=== PATIENT | male | born 1965 | race Caucasian/White ===

== ENCOUNTER 2018-05-10 09:28 | Outpatient (CLI) | payer OTHER | END 2018-05-10 09:38 | disposition home or self-care (01) | LOC: SONOGRAMA 09:28 | DX: E04.2 Nontoxic multinodular goiter (principal) ==

== ENCOUNTER 2019-06-20 09:05 | Outpatient (CLI) | payer OTHER | END 2019-06-20 09:06 | disposition home or self-care (01) | LOC: SONOGRAMA 09:05 | DX: E04.1 Nontoxic single thyroid nodule (principal) ==

== ENCOUNTER 2020-08-03 09:13 | Outpatient (CLI) | payer OTHER | END 2020-08-03 09:31 | disposition home or self-care (01) | LOC: SONOGRAMA 09:13 | PROVIDERS: ATTEND Pathology Anatomic Pathology & Clinical Pathology | DX: E04.2 Nontoxic multinodular goiter (principal) ==

== ENCOUNTER 2024-05-14 10:15 | Inpatient (IN) | payer OTHER ==
[2024-05-14] MEDS ORDERED: METFORMIN HCL1000 M2 PO (13:01)
[2024-05-14] MEDS ORDERED: GLUMETZA1000 MG PO (13:01)
[2024-05-14] MEDS ORDERED: LOSARTAN-HCTZ1 EAC1 PO (13:02)
[2024-05-14] MEDS ORDERED: KATERZIA1 MG/1 ML PO (13:02)
[2024-05-14] MEDS ORDERED: LIPITOR40 M1 PO (13:03)
[2024-05-14] MEDS ORDERED: PROTONIX20 MG PO (13:04)
[2024-05-20] MEDS ORDERED: MORPHINE SULFATE 4 MG/ML CARTRIDGE IV PRN (19:30)
[2024-05-20] MEDS ORDERED: DEXTROSE 50 % IN WATER 0.5 G/ML DISP.SYRIN IV PRN (19:30)
[2024-05-20] MEDS ORDERED: OxyCODONE HCL 5 MG TABLET (ROXICODONE) PO PRN (19:30)
[2024-05-20] MEDS ORDERED: ONDANSETRON HCL 2 MG/ML VIAL IV PRN (19:30)
[2024-05-20] MEDS ORDERED: 0.9 % SODIUM CHLORIDE 1,000 ML IV SCH (19:30)
[2024-05-20] MEDS ORDERED: ACETAMINOPHEN 500 MG GEL..CAP PO SCH (20:00)
[2024-05-20] MEDS ORDERED: METRONIDAZOLE/SODIUM CHLORIDE 200 ML IV ONE (20:30)
[2024-05-20] MEDS ORDERED: BUPIVACAINE HCL 30 ML VIAL IJ ONE (20:30)
[2024-05-20] MEDS ORDERED: CEFTRIAXONE SODIUM 2,000 MG in 0.9 % SODIUM CHLORIDE 50 ML IV ONE (20:30)
[2024-05-20] MEDS ORDERED: LIDOCAINE HCL 1%/EPINEPHRINE 20ML VIAL IJ ONE (20:30)
[2024-05-20] MEDS ORDERED: CELECOXIB 200 MG CAPSULE PO SCH (21:00)
[2024-05-20] MEDS ORDERED: FAMOTIDINE/PF 20 MG/2 ML VIAL IV PUSH SCH (21:00)
[2024-05-20 23:13] LABS: HEMATOCRIT 44.2 % (39.0-48.0); HEMOGLOBIN 14.5 g/dL (13-16.00); MEAN CELL VOLUME 90.5 fL (80.0-100.00); MEAN CORPUSCULAR HEMOGLOBIN 29.7 pg (27.00-32.0); MEAN CORPUSCULAR HGB CONC 32.9 g/dl (32.0-36.0); PLATELET COUNT 229 K/uL (150-450); RED BLOOD COUNT 4.88 M/uL (4.00-6.00); RED CELL DISTRIBUTION WIDTH 13.8 % (11.5-14.5)
[2024-05-20 23:31] LABS: ALBUMIN 3.8 gm/dL (3.4-5.0); CALCIUM 9.3 mg/dL (8.5-10.1); CREATININE SERUM 1.03 mg/dL (0.70-1.30); GFR 73.42; MAGNESIUM 1.7 mg/dL (1.8-2.4); PHOSPHOROUS 3.2 mg/dL (2.5-4.9); POTASSIUM 3.26 mEq/L (3.5-5.1)
[2024-05-21] VITALS (8 sets, daily range): BP systolic 115–169; BP diastolic 74–89; O2SAT 93–98
[2024-05-21] MEDS ORDERED: GABAPENTIN 300 MG CAPSULE PO SCH (01:00)
[2024-05-21] MEDS ORDERED: MORPHINE SULFATE 4 MG/ML VIAL IV ONE (01:20)
[2024-05-21] MEDS ORDERED: ENALAPRILAT DIHYDRATE 1.25 MG/ML VIAL IV PRN (05:45)
[2024-05-21] MEDS ORDERED: INSULIN LISPRO 1,000 UNIT/10 ML UNITS SUBCUTANEO PRN (06:00)
[2024-05-21] MEDS ORDERED: DEXTROSE 50 % IN WATER 0.5 G/ML DISP.SYRIN IV PRN (06:00)
[2024-05-21 06:47] LABS: HEMATOCRIT 43.8 % (39.0-48.0); HEMOGLOBIN 14.5 g/dL (13-16.00); MEAN CELL VOLUME 89.7 fL (80.0-100.00); MEAN CORPUSCULAR HEMOGLOBIN 29.7 pg (27.00-32.0); MEAN CORPUSCULAR HGB CONC 33.2 g/dl (32.0-36.0); PLATELET COUNT 199 K/uL (150-450); RED BLOOD COUNT 4.88 M/uL (4.00-6.00)
[2024-05-21 07:42] LABS: ALBUMIN 3.7 gm/dL (3.4-5.0); CALCIUM 9.4 mg/dL (8.5-10.1); CREATININE SERUM 0.89 mg/dL (0.70-1.30); GFR 86.9; MAGNESIUM 1.7 mg/dL (1.8-2.4); PHOSPHOROUS 2.6 mg/dL (2.5-4.9)
[2024-05-21] MEDS ORDERED: MAGNESIUM SULFATE IN WATER 50 ML IV ONE (08:15)
[2024-05-21] MEDS ORDERED: LOSARTAN/HYDROCHLOROTHIAZIDE 1 UDTAB TABLET PO SCH (09:00)
[2024-05-21] MEDS ORDERED: HYOSCYAMINE SULFATE 0.125 MG TAB.SUBL SL SCH (09:00)
[2024-05-21] MEDS ORDERED: MAGNESIUM SULFATE IN WATER 50 ML IV NR (09:00)
[2024-05-21] MEDS ORDERED: AMLODIPINE BESYLATE 10 MG TABLET PO SCH (09:00)
[2024-05-21] MEDS ORDERED: ENOXAPARIN SODIUM 40 MG/0.4 ML SYRINGE SUBCUTANEO SCH (17:00)
[2024-05-21] MEDS ORDERED: POLYETHYLENE GLYCOL 3350 17 GM BLIST.PACK PO SCH (17:00)
[2024-05-21] MEDS ORDERED: ATORVASTATIN CALCIUM 40 MG TABLET PO SCH (17:00)
[2024-05-21] MEDS ORDERED: TAMSULOSIN HCL 0.4 MG CAP PO SCH (21:00)
[2024-05-22] VITALS: BP 139/78; O2SAT 98
[2024-05-22 05:56] VITALS: O2SAT 96
[2024-05-22 06:49] LABS: HEMATOCRIT 44.5 % (39.0-48.0); HEMOGLOBIN 15.3 g/dL (13-16.00); MEAN CELL VOLUME 88.5 fL (80.0-100.00); MEAN CORPUSCULAR HEMOGLOBIN 30.3 pg (27.00-32.0); MEAN CORPUSCULAR HGB CONC 34.3 g/dl (32.0-36.0); PLATELET COUNT 193 K/uL (150-450); RED BLOOD COUNT 5.03 M/uL (4.00-6.00); RED CELL DISTRIBUTION WIDTH 14.3 % (11.5-14.5)
[2024-05-22 07:36] LABS: CALCIUM 9.6 mg/dL (8.5-10.1); CREATININE SERUM 0.95 mg/dL (0.70-1.30); GFR 80.6; MAGNESIUM 2.2 mg/dL (1.8-2.4); PHOSPHOROUS 2.7 mg/dL (2.5-4.9); POTASSIUM 3.76 mEq/L (3.5-5.1)
[2024-05-22] MEDS ORDERED: ENOXAPARIN SODIUM 40 MG/0.4 ML SYRINGE SUBCUTANEO SCH (09:00)
[2024-05-22 10:05] VITALS: BP 141/75; O2SAT 99
[2024-05-22 16:00] VITALS: BP 126/82; O2SAT 97
[2024-05-22 16:27] VITALS: O2SAT 97
[2024-05-22 19:54] VITALS: O2SAT 97
[2024-05-23 00:24] VITALS: BP 112/74; O2SAT 97
[2024-05-23 01:31] VITALS: O2SAT 95
[2024-05-23 06:08] VITALS: O2SAT 98
[2024-05-23 08:00] VITALS: BP 123/75; O2SAT 98
[2024-05-23] MEDS ORDERED: HYOSCYAMINE0.125 M1 SL (08:45)
[2024-05-23] MEDS ORDERED: PEPCID AC20 MG PO (08:46)
[2024-05-23] MEDS ORDERED: TRAM1TAB98 PO (08:46)
[2024-05-23 09:13] VITALS: O2SAT 98
== END 2024-05-23 10:27 | disposition home or self-care (01) | DRG 331 ==
LOC: O/R 05-20 07:37 → SURH 05-20 10:15
PROVIDERS: Internal Medicine Geriatric Medicine; ADMIT Surgery; ATTEND Surgery
PROC: 0DBP4ZZ Excision of Rectum, Percutaneous Endoscopic Approach (ICD-10-PCS; 2024-05-20)
PROC: 07BC4ZZ Excision of Pelvis Lymphatic, Percutaneous Endoscopic Approach (ICD-10-PCS; 2024-05-20)
PROC: 0DJD8ZZ Inspection of Lower Intestinal Tract, Via Natural or Artificial Opening Endoscopic (ICD-10-PCS; 2024-05-20)
PROC: 0DTN4ZZ Resection of Sigmoid Colon, Percutaneous Endoscopic Approach (ICD-10-PCS; principal; 2024-05-20 15:30)
PROC: 4A12X4Z Monitoring of Cardiac Electrical Activity, External Approach (ICD-10-PCS; 2024-05-21)
DX: C19 Malignant neoplasm of rectosigmoid junction (principal); R59.0 Localized enlarged lymph nodes; G47.30 Sleep apnea, unspecified; I11.9 Hypertensive heart disease without heart failure